=== PATIENT | female | born 1975 | race Caucasian/White ===

== ENCOUNTER 2020-06-13 10:23 | Emergency (ER) | payer SELFPAY ==
[~2020-06-13] VITALS: Ht 152.4 cm; Wt 64.0 kg
[2020-06-13] MEDS ORDERED: ALBUTEROL (0.083%) 2.5MG/3ML NEB HHN STA (11:07)
[2020-06-13] MEDS ORDERED: IPRATROPIUM BROMIDE (0.02%) 0.5MG/2.5ML NEB HHN STA (11:07)
[2020-06-13] MEDS ORDERED: PREDNISONE 20MG TABLET PO STA (11:07)
[2020-06-13] MEDS ORDERED: P50 MT (12:17)
[2020-06-13] MEDS ORDERED: ALBU6.7H9 INH (12:17)
[2020-06-13 12:27] VITALS: BP 135/88
== END 2020-06-13 12:29 | disposition home or self-care (01) ==
LOC: ER 10:23
DX: J45.901 Unspecified asthma with (acute) exacerbation (principal)
CPT/HCPCS: 94640; 99283; J7512; Z7610